=== PATIENT | male | born 1955 | race Two or more races ===

== ENCOUNTER 2020-01-23 05:04 | Day surgery (SDC) | payer OTHER ==
[~2020-01-23 05:04] MED LIST: AMLODIPI PO; COSOPT PF EYE1 EACH OP; EPLERENONE50 MG PO; IBERSARTAN PO; XALATAN
== END 2020-01-23 14:35 | disposition home or self-care (01) ==
LOC: CIR.AMB 05:04
PROVIDERS: ATTEND Specialist
DX: K40.90 Unilateral inguinal hernia, without obstruction or gangrene, not specified as recurrent (principal); Z20.828 Contact with and (suspected) exposure to other viral communicable diseases